=== PATIENT | female | born 1950 | race Caucasian/White ===

== ENCOUNTER 2016-03-03 05:33 | Emergency (ER) | payer BC, OTHER ==
[~2016-03-03] VITALS: Ht 152.4 cm; Wt 78.2 kg
[2016-03-03 06:17] LABS: PH 7 (5-8); SQUAMOUS EPITHELIAL 0-2 /hpf; URINE APPEARANCE Clear; URINE BACTERIA None Seen /hpf; URINE BILIRUBIN Negative (NEGATIVE); URINE BLOOD Negative (NEGATIVE); URINE COLOR Yellow; URINE GLUCOSE Negative (NEGATIVE); URINE KETONE Negative (NEGATIVE); URINE RBC 0-2 /hpf; URINE UROBILINOGEN Negative (NEGATIVE); URINE WBC 0-2 /hpf
[2016-03-03 06:26] LABS: BASO % 0.4 % (0.0-2.0); EOS # 0.3 (0.0-0.7); EOS % 2.3 % (0-4.0); GRAN # 8.4 (1.4-6.5); GRAN % 75.4 % (42.2-75.2); HEMATOCRIT 42.6 % (37.0-47.0); HEMOGLOBIN 13.7 g/dl (12.5-16.0); LYMPH # 1.6 (1.2-3.4); LYMPH % 14.1 % (20.0-51.0); MEAN CELL VOLUME 94 fl (80.0-100.0); MEAN CORPUSCULAR HEMOGLOBIN 30 pg (27.0-31.0); MEAN CORPUSCULAR HGB CONC 32 g/dl (33.0-37.0); MEAN PLATELET VOLUME 11.1 fl (7.4-10.4); MONO # 0.8 (0.1-0.6); MONO % 7.3 % (1.7-9.3); PLATELET COUNT 228 K/mm3 (130-400); RED BLOOD COUNT 4.54 M/mm3 (4.10-5.30); REDCELL DISTRIBUTION WIDTH-CV 13.3 % (11.5-14.5); WHITE BLOOD COUNT 11.1 K/mm3 (4.8-10.8)
[2016-03-03 06:38] LABS: ADJUSTED CALCIUM 8.8 mg/dL (8.4-10.2); ALANINE AMINOTRANSFERASE 34 U/L (9-52); ALBUMIN 4.1 gm/dL (3.5-5.0); ALKALINE PHOSPHATASE 61 U/L (50-136); ANION GAP 10 mmol/L (7-16); BILIRUBIN,TOTAL 0.6 mg/dL (0.0-1.0); BLOOD UREA NITROGEN 20 mg/dL (7-17); CALCIUM 8.9 mg/dL (8.4-10.2); CARBON DIOXIDE 28 mmol/L (22-30); CHLORIDE 103 mmol/L (98-107); CREATININE, serum 0.93 mg/dL (0.52-1.25); GLUCOSE 108 mg/dL (74-106); LIPASE 200 U/L (23-300); POTASSIUM 4.4 mmol/L (3.4-5.0); SODIUM 141 mmol/L (137-145); TOTAL PROTEIN 7.3 gm/dL (6.4-8.2)
[2016-03-03 06:47] LABS: C-REACTIVE PROTEIN < 0.5 mg/dL (0.0-0.9)
[2016-03-03] MEDS ORDERED: COREG12.5 MG PO (07:54)
[2016-03-03] MEDS ORDERED: NAPROSYN500 MG PO (07:55)
[2016-03-03] MEDS ORDERED: NORCO 325 MG-51 TAB PO (07:55)
[2016-03-03] MEDS ORDERED: PRINIVIL10 MG PO (07:56)
[2016-03-03] MEDS ORDERED: SYNTHROID0.088 MG/T PO (07:56)
[2016-03-03] MEDS ORDERED: FLEXERIL 1010 MG/TAB PO (07:57)
[2016-03-03] MEDS ORDERED: PAXIL40 MG PO (07:57)
[2016-03-03 08:05] VITALS: BP 148/105; PULSE 80; TEMP 97.4
== END 2016-03-03 08:05 | disposition home or self-care (01) ==
LOC: COL.ER 05:33
PROVIDERS: Emergency Medicine
DX: R10.12 Left upper quadrant pain (principal); K59.00 Constipation, unspecified
CPT/HCPCS: J2405; J7030; Q9967